=== PATIENT | male | born 1955 | race Caucasian/White ===

== ENCOUNTER → 2023-10-11 | Outpatient (CLI) | payer MEDICARE, SELFPAY ==
--- NOTE | 2023-10-11 10:27 | RAD_ITS ---
EXAM: XR CERVICAL SPINE, 4 OR 5 VIEWS CLINICAL INDICATION: Segmental and somatic dysfunction of cervical yoon TECHNIQUE: Frontal, lateral and bilateral oblique views of the cervical spine. COMPARISON: No relevant prior studies available. FINDINGS: VERTEBRAE: There is posterior spondylolisthesis of C3 on C4 by 6 mm. There is bilateral bony neural foraminal narrowing at C3-4 and C4-5. Preserved vertebral body height. No acute fracture. Preservation of the normal cervical lordosis. No significant facet arthropathy. DISC SPACES: There is disc space narrowing C5-6. SOFT TISSUES: Unremarkable. No prevertebral soft tissue widening. LUNG APICES: Clear. RAD/Cerv Spine 4 or 5 Views IMPRESSION: 1. No acute osseous abnormalities. 2. Degenerative changes with disc space narrowing and bony neural foraminal narrowing in the upper to mid spine. There is posterior spondylolisthesis of C3 on C4. Electronically Signed: Bill Sykes MD at 20:50 EDT ,
== END | disposition home or self-care (01) ==
PROVIDERS: PCP Family Medicine; Referring Provider Chiropractor Orthopedic; Visit Provider Chiropractor Orthopedic
DX: M99.01 Segmental and somatic dysfunction of cervical region (principal)
CPT/HCPCS: 72050